=== PATIENT | female | born 1950 | race Caucasian/White ===

== ENCOUNTER 2023-03-02 19:58 | Emergency (ER) | payer MEDICARE, OTHER ==
[2023-03-02] MEDS ORDERED: Sodium Chloride 0.9% 1,000 ML IV ONE (20:14)
[2023-03-02] MEDS ORDERED: Ketorolac 30 MG/ML SDV IVPUSH ONE (20:15)
[2023-03-02] MEDS ORDERED: Ondansetron 4 MG/2 ML SDV IVPUSH ONE (20:15)
[2023-03-02 20:26] LABS: BASOPHILS PERCENT AUTO 0.6 % (0.0-1.5); EOSINOPHILS ABSOLUTE AUTO 0.2 K/uL (0.0-0.7); EOSINOPHILS PERCENT AUTO 2.1 % (0.0-7.0); HEMATOCRIT 44.7 % (36.0-46.0); HEMOGLOBIN 15.2 g/dL (12.0-16.0); LYMPHOCYTES ABSOLUTE AUTO 1.6 K/uL (0.6-2.4); LYMPHOCYTES PERCENT AUTO 21.7 % (16.0-40.0); MEAN CORPUSCULAR HEMOGLOBIN 32.9 pg (27.0-32.0); MEAN CORPUSCULAR VOLUME 96.8 fL (80.0-98.0); MONOCYTES ABSOLUTE AUTO 0.6 K/uL (0.0-0.8); MONOCYTES PERCENT AUTO 8.9 % (0.0-15.0); NEUTROPHILS ABSOLUTE AUTO 4.8 K/uL (1.4-5.7); NEUTROPHILS PERCENT AUTO 66.7 % (48.0-80.0); PLATELET COUNT,PLT 140 K/uL (150-400); RED BLOOD CELL COUNT 4.62 M/uL (4.30-5.90); WHITE BLOOD CELL COUNT,WBC 7.19 K/uL (4.0-11.0)
[2023-03-02] MEDS: Metoprolol Tartrate 5 MG/5 ML SDV IVPUSH ONE ×2 (20:28→20:49)
[2023-03-02 20:32] LABS: BASE EXCESS VENOUS 5.1 (-2.0-3.0); PH,VENOUS 7.41 (7.31-7.41)
[2023-03-02 20:35] LABS: INR 1.09 (0.86-1.11); PTT,PARTIAL THROMBOPLSTIN TIME 27.3 SEC (23.9-30.7)
[2023-03-02 20:41] LABS: A/G RATIO 0.8 (0.9-1.6); ALBUMIN 3.1 g/dL (3.4-5.0); BILIRUBIN TOTAL 0.7 mg/dL (0.2-1.0); CALCIUM 8.7 mg/dL (8.5-10.1); CARBON DIOXIDE,CO2 29.8 mmol/L (21.0-32.0); CREATININE 0.8 mg/dL (0.6-1.0); EST CRCL DRUG DOSING (CG) 54.89 mL/min; POTASSIUM,K 4.5 mmol/L (3.5-5.1); PROTEIN TOTAL,TP 7.1 g/dL (6.4-8.2)
[2023-03-02] MEDS ORDERED: Enoxaparin 100 MG/1 ML Syringe SUBCUT ONE ×2 (20:53→21:33)
[2023-03-02] MEDS ORDERED: Warfarin 5 MG Tab PO ONE (20:56)
[2023-03-02 21:08] LABS: LACTIC ACID 1.4 mmol/L (0.4-2.0)
[2023-03-02] MEDS ORDERED: Enoxaparin 60 MG/0.6 ML Syringe SUBCUT ONE (21:24)
[2023-03-02] MEDS ORDERED: Enoxaparin 100 MG/1 ML Syringe ONE (21:32)
[2023-03-02 21:37] LABS: APPEARANCE,URINE CLEAR; BILIRUBIN,URINE NEGATIVE (NEGATIVE); COLOR,URINE YELLOW; GLUCOSE,URINE NEGATIVE (NEGATIVE); KETONES,URINE NEGATIVE (NEGATIVE); LEUKOCYTE ESTERASE,URINE NEGATIVE (NEGATIVE); NITRITE,URINE NEGATIVE (NEGATIVE); OCCULT BLOOD,URINE NEGATIVE (NEGATIVE); PROTEIN,URINE NEGATIVE (NEGATIVE)
== END 2023-03-03 11:09 | disposition home or self-care (01) ==
LOC: MW.ED 19:58
DX: R73.9 Hyperglycemia, unspecified (principal); Z91.148 Patient's other noncompliance with medication regimen for other reason; Z20.822 Contact with and (suspected) exposure to COVID-19
CPT/HCPCS: 36415; 80053; 81003; 82009; 82803; 83605; 83690; 83735; 84484; 85025; 85610; 85730; 93005; 96361; 96372; 96374; 96375; 99284; A9270; J1650; J1885; J2405; J7030; U0002; 93010; J3490

== ENCOUNTER 2023-03-14 07:10 | Emergency (ER) | payer MEDICARE, OTHER ==
[2023-03-14] MEDS ORDERED: Sodium Chloride 0.9% 1,000 ML IV ONE ×2 (07:15→08:00)
[2023-03-14] MEDS ORDERED: Etomidate 2 MG/ML 20 ML SDV IVPUSH ONE (07:26)
[2023-03-14] MEDS ORDERED: Succinylcholine 200 MG/10 ML MDV IV STA (07:26)
[2023-03-14] MEDS ORDERED: Nitroglycerin 0.4 MG Tab.SL SL ONE (07:26)
[2023-03-14] MEDS ORDERED: Sodium Chloride 0.9% 10 ML Syringe FLUSH PRN (07:32)
[2023-03-14] MEDS ORDERED: Sodium Chloride 0.9% 2.5 ML Syringe FLUSH PRN (07:32)
[2023-03-14] MEDS ORDERED: Albuterol/Ipratropium 3.0-0.5 MG/3 ML Neb Soln NEB ONE (07:34)
[2023-03-14] MEDS ORDERED: Piperacillin/Tazobactam 4.5 GM in Sodium Chloride 0.9% 100 ML IV ONE (07:35)
[2023-03-14] MEDS ORDERED: methylPREDNISolone Sodium Succinate 125 MG/2 ML SDV IVPUSH ONE (07:35)
[2023-03-14] MEDS ORDERED: Furosemide 40 MG/4 ML VIAL IVPUSH ONE (07:37)
[2023-03-14] MEDS ORDERED: Nitroglycerin/D5W 25 MG/250 ML BOTTLE IV SCH (07:45)
[2023-03-14] MEDS ORDERED: Norepinephrine Bit/D5W Premix 250 ML ONE (07:55)
[2023-03-14] MEDS: propofoL 100 ML IV SCH ×5 (08:00→12:13)
[2023-03-14] MEDS: fentaNYL 100 MCG/2 ML SDV ONE ×2 (08:19→08:54)
[2023-03-14 08:29] LABS: BASE EXCESS ARTERIAL -3.4 (-2.0-3.0); BICARBONATE,ARTERIAL 26 mEq/L (22-26); PCO2 ARTERIAL 63 mmHG (35-45); PO2 ARTERIAL 71 mmHG (80-105)
[2023-03-14 08:30] LABS: BASOPHILS PERCENT AUTO 0.2 % (0.0-1.5); EOSINOPHILS ABSOLUTE AUTO 0.1 K/uL (0.0-0.7); EOSINOPHILS PERCENT AUTO 0.7 % (0.0-7.0); HEMOGLOBIN 14.3 g/dL (12.0-16.0); LYMPHOCYTES ABSOLUTE AUTO 1.4 K/uL (0.6-2.4); LYMPHOCYTES PERCENT AUTO 10.8 % (16.0-40.0); MEAN CORPUSCULAR HEMOGLOBIN 32.6 pg (27.0-32.0); MEAN CORPUSCULAR HGB CONC 33.3 g/dL (31.0-37.0); MEAN CORPUSCULAR VOLUME 97.9 fL (80.0-98.0); MONOCYTES ABSOLUTE AUTO 0.9 K/uL (0.0-0.8); MONOCYTES PERCENT AUTO 7.4 % (0.0-15.0); NEUTROPHILS ABSOLUTE AUTO 10.2 K/uL (1.4-5.7); NEUTROPHILS PERCENT AUTO 80.9 % (48.0-80.0); NRBC ABSOLUTE 0 K/uL; PLATELET COUNT,PLT 174 K/uL (150-400); RED BLOOD CELL COUNT 4.39 M/uL (4.30-5.90); WHITE BLOOD CELL COUNT,WBC 12.64 K/uL (4.0-11.0)
[2023-03-14] MEDS ORDERED: Norepinephrine Bit/D5W Premix 250 ML IV SCH (08:30)
[2023-03-14] MEDS ORDERED: Propofol 200 MG/20 ML SDV IVPUSH ONE ×2 (08:36)
[2023-03-14 08:44] LABS: INR 1.38 (0.86-1.11)
[2023-03-14] MEDS ORDERED: fentaNYL/Normal Saline 2,500 MCG in Premix Bag 1 BAG IV PRN (08:44)
[2023-03-14] MEDS ORDERED: fentaNYL 50 MCG/ML SDV IVPUSH ONE (08:44)
[2023-03-14] MEDS: fentaNYL/Normal Saline 250 ML ONE ×2 (08:46→08:59)
[2023-03-14 08:55] LABS: LACTIC ACID 2.5 mmol/L (0.4-2.0)
[2023-03-14 08:57] LABS: A/G RATIO 0.7 (0.9-1.6); ALANINE AMINOTRANSFERASE,ALT 52 IU/L (14-63); ALBUMIN 2.3 g/dL (3.4-5.0); ALKALINE PHOSPHATASE 144 U/L (46-116); ASPARTATE AMNIOTRANSFERASE,AST 47 IU/L (15-37); BILIRUBIN TOTAL 0.4 mg/dL (0.2-1.0); BLOOD UREA NITROGEN,BUN 20 mg/dL (7.0-18.0); CALCIUM 7.5 mg/dL (8.5-10.1); CARBON DIOXIDE,CO2 26.8 mmol/L (21.0-32.0); CHLORIDE,CL 106 mmol/L (98-107); CREATININE 1.1 mg/dL (0.6-1.0); ESTIMATED GFR 53 mL/min (>60); GLUCOSE RANDOM 294 mg/dL (74-106); POTASSIUM,K 4.7 mmol/L (3.5-5.1); PROTEIN TOTAL,TP 5.8 g/dL (6.4-8.2); SODIUM,NA 140 mmol/L (136-145)
[2023-03-14 08:59] LABS: BILIRUBIN,URINE NEGATIVE (NEGATIVE); COLOR,URINE YELLOW; GLUCOSE,URINE 100 mg/dL (NEGATIVE); KETONES,URINE NEGATIVE (NEGATIVE); LEUKOCYTE ESTERASE,URINE NEGATIVE (NEGATIVE); NITRITE,URINE NEGATIVE (NEGATIVE); OCCULT BLOOD,URINE MODERATE (NEGATIVE); PROTEIN,URINE 100 mg/dL (NEGATIVE); UROBILINOGEN,URINE 0.2 EU/dL (<2.0)
[2023-03-14 09:01] LABS: APPEARANCE,URINE HAZY
[2023-03-14 09:11] LABS: EPITHELIAL CELLS,URINE OCCASIONAL (NONE-FEW); WBC,URINE 0-3 (0-5/HPF)
[2023-03-14 09:12] LABS: BACTERIA,URINE FEW (NEGATIVE)
[2023-03-14 09:37] LABS: CORONAVIRUS COVID-19 NAA NEGATIVE (NEGATIVE); INFLUENZA A NAA NEGATIVE (NEGATIVE); INFLUENZA B NAA NEGATIVE (NEGATIVE)
[2023-03-14] MEDS ORDERED: Iopamidol 755 MG/ML 500 ML Multipack Bottle IVPUSH ONE (09:43)
[2023-03-14] MEDS ORDERED: Enoxaparin 100 MG/1 ML Syringe SUBCUT ONE (09:44)
[2023-03-14 11:12] LABS: BICARBONATE,ARTERIAL 26 mEq/L (22-26); PCO2 ARTERIAL 44 mmHG (35-45); PO2 ARTERIAL 68 mmHG (80-105)
== END 2023-03-16 12:21 ==
LOC: MW.ED 07:10
DX: J96.90 Respiratory failure, unspecified, unspecified whether with hypoxia or hypercapnia (principal); I11.0 Hypertensive heart disease with heart failure; I50.9 Heart failure, unspecified; J44.9 Chronic obstructive pulmonary disease, unspecified; E11.9 Type 2 diabetes mellitus without complications; I25.2 Old myocardial infarction; Z79.01 Long term (current) use of anticoagulants; Z79.899 Other long term (current) drug therapy; Z86.718 Personal history of other venous thrombosis and embolism; Z20.822 Contact with and (suspected) exposure to COVID-19
CPT/HCPCS: 0240U; 31500; 36415; 36556; 36600; 36680; 51702; 71045; 71275; 80053; 81001; 82803; 83605; 83880; 84484; 85025; 85610; 87040; 93005; 96361; 96365; 96366; 96368; 96372; 96375; 99285; A9270; J0330; J1650; J1940; J2543; J2704; J2930; J3010; J3490; J7030; Q9967; 93010; 99291; J7620-GY

== ENCOUNTER 2023-10-11 05:09 | Emergency (ER) | payer MEDICARE, OTHER ==
[2023-10-11] MEDS ORDERED: Sodium Chloride 0.9% 10 ML Syringe FLUSH PRN (05:10)
[2023-10-11] MEDS ORDERED: Sodium Chloride 0.9% 2.5 ML Syringe FLUSH PRN (05:10)
[2023-10-11] MEDS ORDERED: Sodium Chloride 0.9% 500 ML IV SCH (05:15)
[2023-10-11 06:28] LABS: BASOPHILS ABSOLUTE AUTO 0.02 K/uL (0.00-0.20); BASOPHILS PERCENT AUTO 0.2 % (0.0-1.0); EOSINOPHILS ABSOLUTE AUTO 0.01 K/uL (0.00-0.45); EOSINOPHILS PERCENT AUTO 0.1 % (0.0-6.0); HEMATOCRIT 48.6 % (37.0-47.0); IMMATURE GRAN ABSOLUTE AUTO 0.05 K/uL (0.00-0.05); IMMATURE GRAN PERCENT AUTO 0.5 % (0.0-0.4); LYMPHOCYTES PERCENT AUTO 6.5 % (24.0-44.0); MEAN CORPUSCULAR HEMOGLOBIN 33.3 pg (28.0-32.0); MEAN CORPUSCULAR HGB CONC 32.9 g/dL (32.0-36.0); MONOCYTES ABSOLUTE AUTO 0.94 K/uL (0.00-0.80); MONOCYTES PERCENT AUTO 8.7 % (0.0-8.0); NEUTROPHILS ABSOLUTE AUTO 9.11 K/uL (1.80-7.70); PLATELET COUNT,PLT 140 K/uL (150-400); RED BLOOD CELL COUNT 4.81 M/uL (4.10-5.30); WHITE BLOOD CELL COUNT,WBC 10.83 K/uL (3.9-11.3)
[2023-10-11 06:40] LABS: A/G RATIO 0.7 (0.9-1.6); BILIRUBIN TOTAL 0.9 mg/dL (0.2-1.0); CALCIUM 8.2 mg/dL (8.5-10.1); CARBON DIOXIDE,CO2 34.3 mmol/L (21.0-32.0); CREATININE 1.3 mg/dL (0.6-1.0); EST CRCL DRUG DOSING (CG) 30.48 mL/min; POTASSIUM,K 6.8 mmol/L (3.5-5.1); PROTEIN TOTAL,TP 7.2 g/dL (6.4-8.2)
[2023-10-11 06:43] LABS: BASE EXCESS ARTERIAL 1.8 (-2.0-3.0); BICARBONATE,ARTERIAL 33 mEq/L (22-26); PCO2 ARTERIAL 88 mmHG (35-45); PO2 ARTERIAL 89 mmHG (80-105)
[2023-10-11 07:04] LABS: HEMOGLOBIN A1C 8.6 %
[2023-10-11] MEDS ORDERED: Rocuronium 50 MG/5 ML Vial IV ONE (07:36)
[2023-10-11] MEDS ORDERED: Etomidate 2 MG/ML 20 ML SDV IVPUSH ONE (07:36)
[2023-10-11] MEDS ORDERED: fentaNYL/Normal Saline 2,500 MCG in Premix Bag 1 BAG IV PRN (07:37)
[2023-10-11] MEDS ORDERED: Calcium Gluconate 10% 1 GM/10 ML SDV IVPUSH ONE (07:40)
[2023-10-11] MEDS ORDERED: Insulin Regular, Human 100 Units/ML 10 ML Vial IVPUSH ONE (07:40)
[2023-10-11] MEDS ORDERED: Furosemide 20 MG/2 ML VIAL IVPUSH ONE (07:41)
[2023-10-11 07:55] LABS: INR 1.33 (0.86-1.11)
[2023-10-11] MEDS: propofoL 100 ML IV SCH ×2 (08:02→13:30)
[2023-10-11 08:34] LABS: BILIRUBIN,URINE NEGATIVE (NEGATIVE); COLOR,URINE YELLOW; GLUCOSE,URINE 500 mg/dL (NEGATIVE); KETONES,URINE NEGATIVE (NEGATIVE); LEUKOCYTE ESTERASE,URINE NEGATIVE (NEGATIVE); NITRITE,URINE NEGATIVE (NEGATIVE); OCCULT BLOOD,URINE TRACE-INTACT (NEGATIVE); PROTEIN,URINE 100 mg/dL (NEGATIVE)
[2023-10-11 08:39] LABS: APPEARANCE,URINE HAZY
[2023-10-11 08:44] LABS: BACTERIA,URINE 3+ (NEGATIVE); EPITHELIAL CELLS,URINE FEW (NONE-FEW)
[2023-10-11 08:45] LABS: MUCUS,URINE LIGHT (NONE-MOD)
[2023-10-11] MEDS ORDERED: Iopamidol 755 MG/ML 500 ML Multipack Bottle IVPUSH STA (09:08)
[2023-10-11] MEDS ORDERED: Cefepime 2 GM Vial IVPUSH ONE (09:19)
[2023-10-11] MEDS ORDERED: Water For Injection, Sterile 20 ML ONE (09:35)
[2023-10-11 09:36] LABS: BASE EXCESS ARTERIAL 5.4 (-2.0-3.0); BICARBONATE,ARTERIAL 35 mEq/L (22-26); PCO2 ARTERIAL 71 mmHG (35-45); PO2 ARTERIAL 56 mmHG (80-105)
[2023-10-11] MEDS ORDERED: Propofol 200 MG/20 ML SDV IVPUSH ONE ×3 (09:41→13:10)
[2023-10-11] MEDS ORDERED: fentaNYL 100 MCG/2 ML SDV IVPUSH ONE ×2 (09:56→10:45)
[2023-10-11] MEDS ORDERED: fentaNYL 100 MCG/2 ML SDV ONE (09:58)
[2023-10-11] MEDS ORDERED: Norepinephrine Bit/D5W Premix 250 ML IV SCH (10:00)
[2023-10-11 10:30] LABS: AMPHETAMINES SCREEN, URINE PRESUMPTIVE POSITIVE (CUTOFF=500); BARBITURATE SCREEN,URINE NEGATIVE (CUTOFF=200); BENZODIAZEPINES SCREEN,URINE NEGATIVE (CUTOFF=150); BUPRENORPHINE SCREEN,URINE NEGATIVE (CUTOFF=10); METHADONE SCREEN, URINE NEGATIVE (CUTOFF=200); METHAMPHETAMINES SCREEN, URINE PRESUMPTIVE POSITIVE (CUTOFF=500); OXYCODONE SCREEN,URINE NEGATIVE (CUT0FF=100); PCP SCREEN,URINE NEGATIVE (CUTOFF=25); THC SCREEN,URINE 20 NG/ML NEGATIVE (CUTOFF=50)
[2023-10-11 13:32] LABS: BASE EXCESS ARTERIAL 6.9 (-2.0-3.0); BICARBONATE,ARTERIAL 33 mEq/L (22-26); PCO2 ARTERIAL 50 mmHG (35-45); PO2 ARTERIAL 66 mmHG (80-105)
== END 2023-10-11 13:43 ==
LOC: MW.ED 05:09
DX: F15.10 Other stimulant abuse, uncomplicated (principal); J81.0 Acute pulmonary edema; J96.91 Respiratory failure, unspecified with hypoxia; Z91.148 Patient's other noncompliance with medication regimen for other reason; I11.0 Hypertensive heart disease with heart failure; I50.9 Heart failure, unspecified; J44.9 Chronic obstructive pulmonary disease, unspecified; E11.9 Type 2 diabetes mellitus without complications; Z95.5 Presence of coronary angioplasty implant and graft; Z79.84 Long term (current) use of oral hypoglycemic drugs; Z79.01 Long term (current) use of anticoagulants; Z79.899 Other long term (current) drug therapy
CPT/HCPCS: 31500; 36415; 36556; 36600; 43752; 51702; 70450; 71045; 71275; 72125; 72170; 74177; 80053; 80305; 81001; 82550; 82803; 82947; 83036; 83690; 84484; 85025; 85610; 87040; 93005; 96365; 96366; 96368; 96375; 99285; G0390; J0612; J0692; J1815; J1940; J2704; J3010; J3490; Q9967; 93010; 99291

== ENCOUNTER 2024-10-17 03:47 | Inpatient (IN) | payer MEDICARE, MEDICAID ==
[2024-10-17 04:07] LABS: BASOPHILS ABSOLUTE AUTO 0.06 K/uL (0.00-0.20); BASOPHILS PERCENT AUTO 0.6 % (0.0-1.0); EOSINOPHILS ABSOLUTE AUTO 0.18 K/uL (0.00-0.45); EOSINOPHILS PERCENT AUTO 1.8 % (0.0-6.0); HEMATOCRIT 51.5 % (37.0-47.0); HEMOGLOBIN 17.1 g/dL (12.0-16.0); IMMATURE GRAN ABSOLUTE AUTO 0.05 K/uL (0.00-0.05); IMMATURE GRAN PERCENT AUTO 0.5 % (0.0-0.4); LYMPHOCYTES ABSOLUTE AUTO 2.57 K/uL (1.00-4.80); LYMPHOCYTES PERCENT AUTO 26.4 % (24.0-44.0); MEAN CORPUSCULAR HEMOGLOBIN 32.7 pg (28.0-32.0); MEAN CORPUSCULAR HGB CONC 33.2 g/dL (32.0-36.0); MEAN CORPUSCULAR VOLUME 98.5 fL (83.0-99.0); MEAN PLATELET VOLUME 9.4 fL (9.4-12.3); MONOCYTES ABSOLUTE AUTO 0.94 K/uL (0.00-0.80); MONOCYTES PERCENT AUTO 9.7 % (0.0-8.0); NEUTROPHILS ABSOLUTE AUTO 5.94 K/uL (1.80-7.70); PLATELET COUNT,PLT 153 K/uL (150-400); RED BLOOD CELL COUNT 5.23 M/uL (4.10-5.30); WHITE BLOOD CELL COUNT,WBC 9.74 K/uL (3.9-11.3)
[2024-10-17 04:12] LABS: PH,VENOUS 7.16 (7.31-7.41)
[2024-10-17] MEDS: Albuterol/Ipratropium 3.0-0.5 MG/3 ML Neb Soln NEB ONE (04:14)
[2024-10-17 04:20] LABS: INR 1.21 (0.86-1.11); PTT,PARTIAL THROMBOPLSTIN TIME 28.2 SEC (23.9-30.7)
[2024-10-17 04:42] LABS: CALCIUM 8.6 mg/dL (8.5-10.1); CARBON DIOXIDE,CO2 34.6 mmol/L (21.0-32.0); CREATININE 0.9 mg/dL (0.6-1.0); EST CRCL DRUG DOSING (CG) 47.36 mL/min; POTASSIUM,K 4.6 mmol/L (3.5-5.1)
[2024-10-17 04:48] LABS: LACTIC ACID 2.3 mmol/L (0.4-2.0)
[2024-10-17] MEDS: Furosemide 40 MG/4 ML VIAL IVPUSH ONE (05:06)
[2024-10-17] MEDS: cefTRIAXone 2 GM in Sodium Chloride 0.9% 50 ML IV SCH (05:09)
[2024-10-17] MEDS: VANCOmycin 2 GM/400 ML 400 ML IV ONE (05:27)
[2024-10-17 05:30] LABS: CORONAVIRUS COVID-19 NAA NEGATIVE (NEGATIVE); INFLUENZA A NAA NEGATIVE (NEGATIVE); INFLUENZA B NAA NEGATIVE (NEGATIVE); RESPIRATORY SYNCYTIAL VIR NAA NEGATIVE (NEGATIVE)
[2024-10-17 06:30] LABS: PH,VENOUS 7.31 (7.31-7.41)
[2024-10-17] MEDS: Iopamidol 755 Mg/ML 100 ML Bottle IVPUSH ONE (07:05)
[2024-10-17] MEDS ORDERED: 50% Dextrose in Water 50 ML Syringe IVPUSH PRN ×2 (11:05→14:20)
[2024-10-17] MEDS ORDERED: Glucagon,Human Recombinant 1 MG Vial IM PRN (11:05)
[2024-10-17] MEDS ORDERED: Acetaminophen 325 MG Tab PO PRN (11:47)
[2024-10-17] MEDS ORDERED: Polyethylene Glycol 3350 Powder 17 GM Packet PO PRN (11:47)
[2024-10-17] MEDS: Insulin Aspart 100 Units/ML 3 ML Pen SUBCUT SCH (13:03)
[2024-10-17] MEDS: Azithromycin 500 MG in Sodium Chloride 0.9% 250 ML IV SCH (13:07)
[2024-10-17] MEDS ORDERED: Furosemide 40 MG/4 ML VIAL IVPUSH SCH (14:00)
[2024-10-17] MEDS: Heparin Sodium 5,000 Units/ML Vial SUBCUT SCH (14:32)
[2024-10-17] MEDS: Furosemide 40 MG/4 ML VIAL IVPUSH SCH (14:32)
[2024-10-17] MEDS: Insulin Aspart 100 Units/ML 3 ML Pen SUBCUT ONE (14:32)
[2024-10-17] MEDS: Aspirin 81 MG Tab.Chew PO SCH (15:20)
[2024-10-17] MEDS: Metoprolol Succinate 25 MG Tab.ER PO ONE (18:23)
[2024-10-17] MEDS: Insulin Glargine,Hum.Rec.Anlog 100 UNIT/ML 3 ML Pen SUBCUT SCH (20:44)
[2024-10-17] MEDS ORDERED: Apixaban 5 MG Tab PO SCH (21:00)
[2024-10-18] MEDS: VANCOmycin 1.5 GM in Sodium Chloride 0.9% 250 ML IV SCH (05:00)
[2024-10-18 06:11] LABS: BASOPHILS ABSOLUTE AUTO 0.05 K/uL (0.00-0.20); BASOPHILS PERCENT AUTO 0.5 % (0.0-1.0); EOSINOPHILS PERCENT AUTO 2.1 % (0.0-6.0); HEMATOCRIT 43.8 % (37.0-47.0); IMMATURE GRAN ABSOLUTE AUTO 0.03 K/uL (0.00-0.05); IMMATURE GRAN PERCENT AUTO 0.3 % (0.0-0.4); LYMPHOCYTES PERCENT AUTO 24.6 % (24.0-44.0); MEAN CORPUSCULAR HEMOGLOBIN 33.6 pg (28.0-32.0); MEAN CORPUSCULAR HGB CONC 34.2 g/dL (32.0-36.0); MEAN PLATELET VOLUME 9.5 fL (9.4-12.3); MONOCYTES PERCENT AUTO 10.7 % (0.0-8.0); NEUTROPHILS ABSOLUTE AUTO 5.76 K/uL (1.80-7.70); NEUTROPHILS PERCENT AUTO 61.8 % (41.0-71.0); PLATELET COUNT,PLT 128 K/uL (150-400); RED BLOOD CELL COUNT 4.47 M/uL (4.10-5.30); WHITE BLOOD CELL COUNT,WBC 9.34 K/uL (3.9-11.3)
[2024-10-18] MEDS: cefTRIAXone 2 GM in Sodium Chloride 0.9% 50 ML IV SCH (06:11)
[2024-10-18 06:27] LABS: A/G RATIO 0.8 (0.9-1.6); ALBUMIN 2.7 g/dL (3.4-5.0); BILIRUBIN TOTAL 0.8 mg/dL (0.2-1.0); CALCIUM 8.1 mg/dL (8.5-10.1); CARBON DIOXIDE,CO2 35.6 mmol/L (21.0-32.0); CREATININE 0.8 mg/dL (0.6-1.0); EST CRCL DRUG DOSING (CG) 53.28 mL/min; MAGNESIUM 1.9 mg/dL (1.8-2.4); PHOSPHORUS 3.6 mg/dL (2.6-4.7); POTASSIUM,K 4.2 mmol/L (3.5-5.1)
[2024-10-18 07:52] LABS: BICARBONATE,ARTERIAL 33 mEq/L (22-26); PCO2 ARTERIAL 69 mmHG (35-45); PO2 ARTERIAL 82 mmHG (80-105)
[2024-10-18] MEDS ORDERED: Aspirin 81 MG Tab.Chew PO SCH (09:00)
[2024-10-18] MEDS: Metoprolol Succinate 25 MG Tab.ER PO SCH (09:50)
[2024-10-18] MEDS: Insulin Aspart 100 Units/ML 3 ML Pen SUBCUT ONE (12:08)
[2024-10-18 14:33] LABS: PH,VENOUS 7.35 (7.31-7.41)
[2024-10-19 05:54] LABS: BASOPHILS ABSOLUTE AUTO 0.06 K/uL (0.00-0.20); BASOPHILS PERCENT AUTO 0.7 % (0.0-1.0); EOSINOPHILS ABSOLUTE AUTO 0.23 K/uL (0.00-0.45); EOSINOPHILS PERCENT AUTO 2.8 % (0.0-6.0); HEMATOCRIT 44.3 % (37.0-47.0); HEMOGLOBIN 15.2 g/dL (12.0-16.0); IMMATURE GRAN ABSOLUTE AUTO 0.02 K/uL (0.00-0.05); IMMATURE GRAN PERCENT AUTO 0.2 % (0.0-0.4); LYMPHOCYTES ABSOLUTE AUTO 1.92 K/uL (1.00-4.80); MEAN CORPUSCULAR HEMOGLOBIN 33.1 pg (28.0-32.0); MEAN CORPUSCULAR HGB CONC 34.3 g/dL (32.0-36.0); MEAN CORPUSCULAR VOLUME 96.5 fL (83.0-99.0); MEAN PLATELET VOLUME 9.4 fL (9.4-12.3); MONOCYTES ABSOLUTE AUTO 0.87 K/uL (0.00-0.80); MONOCYTES PERCENT AUTO 10.4 % (0.0-8.0); NEUTROPHILS ABSOLUTE AUTO 5.24 K/uL (1.80-7.70); NEUTROPHILS PERCENT AUTO 62.9 % (41.0-71.0); PLATELET COUNT,PLT 135 K/uL (150-400); RED BLOOD CELL COUNT 4.59 M/uL (4.10-5.30); WHITE BLOOD CELL COUNT,WBC 8.34 K/uL (3.9-11.3)
[2024-10-19 06:15] LABS: A/G RATIO 0.8 (0.9-1.6); ALBUMIN 2.7 g/dL (3.4-5.0); BILIRUBIN TOTAL 0.9 mg/dL (0.2-1.0); CALCIUM 8.1 mg/dL (8.5-10.1); CREATININE 0.7 mg/dL (0.6-1.0); EST CRCL DRUG DOSING (CG) 60.89 mL/min; MAGNESIUM 1.9 mg/dL (1.8-2.4); PROTEIN TOTAL,TP 6.2 g/dL (6.4-8.2)
[2024-10-19] MEDS: VANCOmycin 1.5 GM in Sodium Chloride 0.9% 250 ML IV SCH (08:14)
[2024-10-19] MEDS: atorvaSTATin 40 MG Tab PO SCH (12:26)
[2024-10-19] MEDS: Furosemide 40 MG Tab PO SCH (17:45)
[2024-10-19] MEDS: Apixaban 5 MG Tab PO SCH (20:18)
[2024-10-19] MEDS: VANCOmycin 1.25 GM in Sodium Chloride 0.9% 250 ML IV SCH (20:19)
[2024-10-20 06:48] LABS: BASOPHILS ABSOLUTE AUTO 0.04 K/uL (0.00-0.20); BASOPHILS PERCENT AUTO 0.6 % (0.0-1.0); EOSINOPHILS PERCENT AUTO 3.1 % (0.0-6.0); HEMATOCRIT 45.1 % (37.0-47.0); IMMATURE GRAN ABSOLUTE AUTO 0.01 K/uL (0.00-0.05); IMMATURE GRAN PERCENT AUTO 0.2 % (0.0-0.4); LYMPHOCYTES ABSOLUTE AUTO 1.49 K/uL (1.00-4.80); LYMPHOCYTES PERCENT AUTO 22.9 % (24.0-44.0); MEAN CORPUSCULAR HEMOGLOBIN 32.7 pg (28.0-32.0); MEAN CORPUSCULAR HGB CONC 33.3 g/dL (32.0-36.0); MEAN CORPUSCULAR VOLUME 98.3 fL (83.0-99.0); MEAN PLATELET VOLUME 9.7 fL (9.4-12.3); MONOCYTES ABSOLUTE AUTO 0.73 K/uL (0.00-0.80); MONOCYTES PERCENT AUTO 11.2 % (0.0-8.0); NEUTROPHILS ABSOLUTE AUTO 4.05 K/uL (1.80-7.70); PLATELET COUNT,PLT 133 K/uL (150-400); RED BLOOD CELL COUNT 4.59 M/uL (4.10-5.30); WHITE BLOOD CELL COUNT,WBC 6.52 K/uL (3.9-11.3)
[2024-10-20 07:14] LABS: A/G RATIO 0.8 (0.9-1.6); ALBUMIN 2.8 g/dL (3.4-5.0); BILIRUBIN TOTAL 0.9 mg/dL (0.2-1.0); CALCIUM 8.3 mg/dL (8.5-10.1); CARBON DIOXIDE,CO2 36.7 mmol/L (21.0-32.0); CREATININE 0.6 mg/dL (0.6-1.0); EST CRCL DRUG DOSING (CG) 71.03 mL/min; PROTEIN TOTAL,TP 6.5 g/dL (6.4-8.2)
[2024-10-20] MEDS: Aspirin 81 MG Tab.EC PO SCH (08:48)
[2024-10-20] MEDS: Losartan 25 MG Tab PO SCH (08:49)
== END 2024-10-20 13:30 | disposition home or self-care (01) | DRG 193 ==
LOC: MW.ED 03:47 → MW.ICU 11:23 → MW.MS 10-19 11:32
PROVIDERS: ADMIT Family Medicine; ATTEND Family Medicine
PROC: 4A133R1 Monitoring of Arterial Saturation, Peripheral, Percutaneous Approach (ICD-10-PCS; principal; 2024-10-17)
PROC: 5A09357 Assistance with Respiratory Ventilation, Less than 24 Consecutive Hours, Continuous Positive Airway Pressure (ICD-10-PCS; 2024-10-17)
DX: J18.9 Pneumonia, unspecified organism (principal); J81.0 Acute pulmonary edema; J96.91 Respiratory failure, unspecified with hypoxia; I73.9 Peripheral vascular disease, unspecified; J96.01 Acute respiratory failure with hypoxia; L03.115 Cellulitis of right lower limb; J44.9 Chronic obstructive pulmonary disease, unspecified; E11.9 Type 2 diabetes mellitus without complications; J44.0 Chronic obstructive pulmonary disease with (acute) lower respiratory infection; I11.0 Hypertensive heart disease with heart failure; I50.9 Heart failure, unspecified; J44.89 Other specified chronic obstructive pulmonary disease; E11.51 Type 2 diabetes mellitus with diabetic peripheral angiopathy without gangrene; E11.65 Type 2 diabetes mellitus with hyperglycemia; R79.89 Other specified abnormal findings of blood chemistry; Z86.718 Personal history of other venous thrombosis and embolism; Z99.81 Dependence on supplemental oxygen; Z79.2 Long term (current) use of antibiotics; Z79.01 Long term (current) use of anticoagulants; Z79.4 Long term (current) use of insulin; Z79.84 Long term (current) use of oral hypoglycemic drugs; Z79.899 Other long term (current) drug therapy; Z95.5 Presence of coronary angioplasty implant and graft; Z87.891 Personal history of nicotine dependence
CPT/HCPCS: 0241U; 36415; 36600; 71045; 71275; 75635; 80048; 80053; 80202; 82803; 82947; 83605; 83735; 83880; 84100; 84145; 84484; 85025; 85610; 85730; 87040; 93005; 93306; 94660; 96365; 96366; 96367; 96375; 99285; A9270-GY; J0456; J0696; J1644; J1815-GY; J1940; J3371; J3372; J3490; J7050; J7620-GY; Q9967